=== PATIENT | female | born 1945 | race Caucasian/White ===

== ENCOUNTER 2018-02-04 14:33 | Emergency (ER) | payer OTHER ==
[~2018-02-04] VITALS: Ht 165.1 cm; Wt 80.7 kg
[2018-02-04] MEDS ORDERED: DUI500 (14:55)
== END 2018-02-04 16:54 | disposition home or self-care (01) ==
LOC: ER 14:33
DX: L27.1 Localized skin eruption due to drugs and medicaments taken internally (principal); T36.1X5A Adverse effect of cephalosporins and other beta-lactam antibiotics, initial encounter

== ENCOUNTER 2018-04-13 09:33 | Emergency (ER) | payer OTHER ==
[~2018-04-13] VITALS: Ht 165.1 cm; Wt 81.6 kg
[~2018-04-13 09:33] MED LIST: DUI500
[2018-04-13] MEDS ORDERED: TRIAMCINOLONE A15 G3 TOP (13:41)
== END 2018-04-13 14:27 | disposition home or self-care (01) ==
LOC: ER 09:33
DX: L50.0 Allergic urticaria (principal)

== ENCOUNTER 2018-06-20 10:41 | Emergency (ER) | payer OTHER ==
[~2018-06-20] VITALS: Ht 165.1 cm; Wt 77.1 kg
[~2018-06-20 10:41] MED LIST changes: +TRIAMCINOLONE A15 G3 TOP
[2018-06-20] MEDS ORDERED: ZITHROMAX TRI-500 MG PO (15:19)
[2018-06-20] MEDS ORDERED: TUSSI PRES-B L120 M1 PO (15:19)
== END 2018-06-20 15:30 | disposition home or self-care (01) ==
LOC: ER 10:41
DX: B34.9 Viral infection, unspecified (principal)

== ENCOUNTER 2019-07-11 14:46 | Emergency (ER) | payer OTHER ==
[~2019-07-11] VITALS: Ht 154.9 cm; Wt 85.7 kg
[~2019-07-11 14:46] MED LIST changes: +TUSSI PRES-B L120 M1 PO; +ZITHROMAX TRI-500 MG PO
== END 2019-07-11 17:15 | disposition home or self-care (01) ==
LOC: ER 14:46
DX: R51 Headache (principal); I10 Essential (primary) hypertension